=== PATIENT | female | born 1990 | race Caucasian/White ===

== ENCOUNTER 2018-04-22 05:01 | Emergency (ER) | payer SELFPAY ==
--- NOTE | 2018-04-22 05:08 | EDPHY ---
H & P Time Seen by Provider: 04/22/18 05:08 HPI/ROS: HPI CHIEF COMPLAINT: Anxiety, racing heart after cocaine and alcohol HISTORY OF PRESENT ILLNESS: This is a 28-year-old female she is otherwise healthy denies significant medical history, presents emergency room states she feels very panicky and anxious. States her heart is racing. This started suddenly approximately 30 min ago after doing a small amount of cocaine. She states she snorted it. This then made her feel very anxious and panicky. She felt her heart racing but no chest pain. Also states she could catch her breath. She decided come the emergency room. She states she has been out partying tonight. It is now 515 in the morning. Past Medical History: Denies significant medical history Past Surgical History: Denies significant surgical history Social History: Cocaine this evening, alcohol this evening. Family History: Noncontributory ROS REVIEW OF SYSTEMS: 10 Systems were reviewed and negative with the exception of the elements mentioned in the history of present illness. Exam Constitutional anxious appearing, triage nursing summary reviewed, vital signs reviewed, awake/alert. Vital signs stable triage slightly tachycardic Eyes normal conjunctivae and sclera, EOMI, PERRLA. HENT normal inspection, atraumatic, moist mucus membranes, no epistaxis, neck supple/ no meningismus, no raccoon eyes. Respiratory clear to auscultation bilaterally, normal breath sounds, no respiratory distress, no wheezing. Cardiovascular tachycardic, regular rhythm, no murmur, no edema, distal pulses normal. Gastrointestinal soft, non-tender, no rebound, no guarding, normal bowel sounds, no distension, no pulsatile mass. Genitourinary no CVA tenderness. Musculoskeletal no midline vertebral tenderness, full range of motion, no calf swelling, no tenderness of extremities, no meningismus, good pulses, neurovascularly intact. Skin pink, warm, & dry, no rash, skin atraumatic. Neurologic awake, alert and oriented x 3, AAOx3, moves all 4 extremities equally, motor intact, sensory intact, CN II-XII intact, normal cerebellar, normal vision, normal speech. Psychiatric normal mood/affect. Heme/Lymph/Immune no lymphadenopathy. Differential Diagnosis: Includes but is not limited to in a particular order cocaine abuse, cocaine ingestion, anxiety attack, panic attack, cardiac arrhythmia, stimulant use. Medical Decision Making: Plan for this patient IV establishment EKG, full cardiac rehabilitation program director, IV fluid bolus, IV Ativan 1 mg for anxiety and cocaine, urine drug screen comma chest x-ray to rule out pneumothorax. Re-evaluation: EKG interpretation by me on record in [employer] system. Impression time of EKG 5:18 a.m., sinus tach [address] elevation or ST depression. No signs of cardiac arrhythmia. Isolated T-wave inversion in lead 3. ED x-ray chest one view negative for acute cardiopulmonary disease no evidence of pneumothorax. Patient's current vitals she is resting comfortably. Heart rate 99, pulse ox 96 % on room air, blood pressure 101/67. 0646: I did go re-evaluate the patient this time she is resting comfortably no acute distress. She states she feels much better after IV Ativan 1 mg and IV fluids. She did not have any chest pain. She is eager to be discharged home like to go home. She has been in emergency for 2 hr. Electrolytes are appropriate. Troponin negative. EKG shows no acute ischemia. Return precautions discussed with the patient she understands return emergency room if she feels worse including chest pain, shortness of breath, fever, vomiting. Alcohol level noted to be 88. Source: Patient Constitutional: Initial Vital Signs Temperature (C) 37.0 C 04/22/18 05:16 Heart Rate 114 H 04/22/18 05:16 Respiratory Rate 28 H 04/22/18 05:16 Blood Pressure 120/80 04/22/18 05:16 O2 Sat (%) 97 04/22/18 05:16 O2 Delivery Mode Room Air Allergies/Adverse Reactions: No Known Allergies Allergy (Unverified 04/22/18 05:16) Home Medications: Medication Instructions Recorded NK [No Known Home Meds] 04/22/18 Medical Decision Making - Data Points Laboratory Results: Laboratory Results 04/22/18 05:34 04/22/18 05:34 04/22/18 04/22/18 04/22/18 05:38 05:34 05:34 WBC 8.17 10^3/uL 10^3/uL (3.80-9.50) RBC 4.73 10^6/uL 10^6/uL (4.18-5.33) Hgb 14.3 g/dL g/dL (12.6-16.3) Hct 41.3 % % (38.0-47.0) MCV 87.3 fL fL (81.5-99.8) MCH 30.2 pg pg (27.9-34.1) MCHC 34.6 g/dL g/dL (32.4-36.7) RDW 11.8 % % (11.5-15.2) Plt Count 233 10^3/uL 10^3/uL (150-400) MPV 10.0 fL fL (8.7-11.7) Neut % (Auto) 63.9 % % (39.3-74.2) Lymph % (Auto) 29.7 % % (15.0-45.0) Larue % (Auto) 4.8 % % (4.5-13.0) Eos % (Auto) 0.1 % L % (0.6-7.6) Baso % (Auto) 0.6 % % (0.3-1.7) Nucleat RBC Rel Count 0.0 % % (0.0-0.2) Absolute Neuts (auto) 5.22 10^3/uL 10^3/uL (1.70-6.50) Absolute Lymphs (auto) 2.43 10^3/uL 10^3/uL (1.00-3.00) Absolute Monos (auto) 0.39 10^3/uL 10^3/uL (0.30-0.80) Absolute Eos (auto) 0.01 10^3/uL L 10^3/uL (0.03-0.40) Absolute Basos (auto) 0.05 10^3/uL 10^3/uL (0.02-0.10) Absolute Nucleated RBC 0.00 10^3/uL 10^3/uL (0-0.01) Immature Gran % 0.9 % % (0.0-1.1) Immature Gran # 0.07 10^3/uL 10^3/uL (0.00-0.10) Sodium 143 mEq/L mEq/L (135-145) Potassium 3.9 mEq/L mEq/L (3.3-5.0) Chloride 109 mEq/L mEq/L (97-110) Carbon Dioxide 17 mEq/l L mEq/l (22-31) Anion Gap 17 mEq/L H mEq/L (8-16) BUN 9 mg/dL mg/dL (7-23) Creatinine 0.8 mg/dL mg/dL (0.6-1.0) Estimated GFR > 60 Glucose 102 mg/dL H mg/dL (70-100) Calcium 9.5 mg/dL mg/dL (8.5-10.4) POC Troponin I 0.01 ng/mL ng/mL (0.00-0.08) Ethyl Alcohol 88 mg/dL H mg/dL (0-10) Medications Given: Discontinued Medications Sodium Chloride (Ns) 1,000 mls @ 0 mls/hr IV EDNOW ONE; Wide Open PRN Reason: Protocol Stop: 04/22/18 05:12 Last Admin: 04/22/18 05:33 Dose: 1,000 mls Sodium Chloride (Ns) 1,000 mls @ 0 mls/hr IV ONCE ONE PRN Reason: Wide Open Stop: 04/22/18 05:13 Last Admin: 04/22/18 05:32 Dose: 1,000 mls Lorazepam (Ativan Injection) 1 mg IVP EDNOW ONE Stop: 04/22/18 05:12 Last Admin: 04/22/18 05:41 Dose: 1 mg Point of Care Test Results: Chemistry 04/22/18 05:38 POC Troponin I 0.01 ng/mL ng/mL (0.00-0.08) Departure - Departure Disposition: Home, Routine, Self-Care Clinical Impression: Cocaine abuse, Anxiety Condition: Good Instructions: Cocaine Abuse (ED), Anxiety (ED) Additional Instructions: 1. Stay well-hydrated drink lots Of fluids and rest today 2. Return emergency room if you have any worsening symptoms questions or concerns. Referrals: NONE *PRIMARY CARE P,. [Primary Care Provider] - As per Instructions
[2018-04-22] MEDS ORDERED: IPRATROPIUM/ALBUTEROL 3 ML DEYVIAL ONE (05:09)
[2018-04-22] MEDS ORDERED: NS 1,000 ML IV ONE ×2 (05:11→05:12)
[2018-04-22] MEDS ORDERED: LORazepam 2 MG/ML INJ IVP ONE (05:11)
[2018-04-22 05:42] LABS: PLATELET COUNT 233 10^3/uL (150-400)
[2018-04-22 06:54] VITALS: BP 103/63
--- NOTE | 2018-04-22 07:22 | CPEKG ---
Test Reason : OPEN Blood Pressure : / mmHG Vent. Rate : 107 BPM Atrial Rate : 107 BPM P-R Int : 176 ms QRS Dur : 076 ms QT Int : 353 ms P-R-T Axes : 065 034 001 degrees QTc Int : 471 ms Sinus tachycardia Probable left atrial enlargement Borderline T abnormalities, anterior leads Confirmed by Dane Garvey ([id number]) on 04/22/2018 7:21:51 AM Referred By: Confirmed By:Dane Garvey
== END 2018-04-22 06:52 | disposition home or self-care (01) ==
DX: F14.180 Cocaine abuse with cocaine-induced anxiety disorder (principal)
CPT/HCPCS: 84484-PO; 96374; G0480; J2060